=== PATIENT | female | born 1995 | race Caucasian/White ===

== ENCOUNTER 2023-01-21 13:29 | Emergency (ER) | payer SELFPAY ==
[~2023-01-21] VITALS: Ht 162.6 cm; Wt 122.7 kg
[2023-01-21] MEDS ORDERED: IBU800 M1 PO (14:01)
[2023-01-21] MEDS ORDERED: HYDROCORTISONE30 G3 TP (14:01)
[2023-01-21 14:15] VITALS: BP 148/80; PULSE 80; TEMP 98.5
== END 2023-01-21 14:22 | disposition home or self-care (01) ==
LOC: COL.ER 13:29
DX: L25.9 Unspecified contact dermatitis, unspecified cause (principal); Z28.310 Unvaccinated for COVID-19